=== PATIENT | male | born 2000 | race Hispanic/Latino ===

== ENCOUNTER 2025-03-13 13:59 | Emergency (ER) | payer OTHER ==
[2025-03-13] MEDS ORDERED: IBUPROFEN 400 MG TAB ONE (14:40)
--- NOTE | 2025-03-13 15:45 | RAD REPORT ---
EXAMINATION: Ankle Left 3 View CLINICAL INDICATION: Male, 24 years old. PAIN COMPARISON: No prior exam. FINDINGS: No acute fracture. No malalignment/dislocation. No significant focal degenerative change. Other: Soft tissue swelling along the lateral malleolus. IMPRESSION: No acute osseous abnormality.
--- NOTE | 2025-03-13 15:52 | EDPHYS ---
Physician Documentation [facility] Name: Alfred Caba Age: 24 yrs Sex: Male : 2000 Arrival Date: 03/13/2025 Time: 13:59 Bed 11 Private MD: ED Physician Celestino Thakkar HPI: 03/13 15:40 This 24 yrs old Male presents to ER via Wheelchair with complaints of Ankle kb Injury. 15:40 Patient is a 24-year-old male who presents for left ankle pain that occurred just prior kb to arrival. States he was playing soccer and twisted his ankle in a hole. Denies any other pain or injury.. Historical: - Allergies: 14:18 Chloraprep One Step; iw - Home Meds: 14:15 None [Active]; iw - PMHx: 14:15 None; iw ROS: 15:41 Constitutional: As per HPI kb Exam: 15:41 Constitutional: This is a well developed, well nourished patient who is awake, alert, kb and in no acute distress. Head/Face: Normocephalic, atraumatic. ENT: Moist Mucous membranes Cardiovascular: Regular rate Respiratory: Respirations even and unlabored. No increased work of breathing. Talking in full sentences Skin: Warm, dry with normal turgor. Normal color. Neuro: Awake and alert, GCS 15, oriented to person, place, time, and situation. 15:41 Musculoskeletal/extremity: Extremities: grossly normal except: noted in the left lateral ankle: pain, swelling, tenderness, ROM: limited active range of motion due to pain, Circulation is intact in all extremities. Sensation intact. Vital Signs: 14:21 Resp 16; Temp 98.1; Pulse Ox 98% ; Pain 8/10; iw 14:21 Pain Scale: Adult iw MDM: 14:13 Medical Screening Exam initiated kb 15:51 Differential diagnosis: fracture, sprain, dislocation. Data reviewed: vital signs, kb nurses notes. Counseling: I had a detailed discussion with the patient and/or guardian regarding the historical points, exam findings, and any diagnostic results supporting the discharge/admit diagnosis, radiology results, the need for outpatient follow up, a orthopedic surgeon, to return to the emergency department if symptoms worsen or persist or if there are any questions or concerns that arise at home. 03/13 14:26 Order name: Ankle Left 3 View XRAY; Complete Time: 15:49 kb 03/13 15:49 Order name: Short Leg Splint; Complete Time: 16:19 kb 03/13 15:49 Order name: Crutches; Complete Time: 16:24 kb Administered Medications: 14:48 Drug: Ibuprofen PO 800 mg PO once Route: PO; aa5 16:24 Follow up: Response: No adverse reaction aa5 Disposition Summary: 03/13/25 15:51 Discharge Ordered Notes: Location: Home kb Condition: Stable kb Diagnosis - Sprain of ankle kb Followup: kb - With: Emergency Department - When: As needed - Reason: Worsening of condition Followup: kb - With: Private Physician - When: 2 - 3 days - Reason: Recheck today's complaints, Continuance of care, Re-evaluation by your physician Discharge Instructions: - Discharge Summary Sheet kb - RICE Therapy for Routine Care of Injuries, [id number] kb - Ankle Sprain, [id number]-[id number] kb - Cast or Splint Care, Adult, [id number] kb Forms: - Medication Reconciliation Form kb - Antibiotic Education kb - Prescription Opioid Use kb - Patient Portal Instructions kb - Leadership Thank You Letter kb - Work release form aa5 Prescriptions: - Diclofenac Sodium 75 mg Oral tablet, delayed release (enteric coated) - take 1 tablet ORAL route 2 times per day As needed; 30 tablet; Refills: 0, kb Product Selection Permitted Addendum: 03/15/2025 09:03 Co-signature as Attending Physician, Celestino Thakkar MD I reviewed the patient's care r n provided by the Advanced Practice Provider and agree with the diagnosis and treatment plan. Signatures: Dispatcher [employer] Rose Ochoa, DRAIN TILER-C DRAIN TILER-Ckb Deborah Medrano, Celestino Obrien RN, MD MD rn Calderon, Audri, RN RN aa5 Corrections: (The following items were deleted from the chart) 03/13 14:19 14:15 Allergies: NKDA; [facility]
--- NOTE | 2025-03-13 15:52 | ER ---
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 iw Coronavirus screen: At this time, the client does not indicate any symptoms associated with coronavirus-19. Ebola Screen: No symptoms or risks identified at this time. Initial Sepsis Screen: Does the patient meet any 2 criteria? No. Patient's initial sepsis screen is negative. Does the patient have a suspected source of infection? No. Patient's initial sepsis screen is negative. Risk Assessment: Do you want to hurt yourself or someone else? Patient reports no desire to harm self or others. 14:15 Method Of Arrival: Wheelchair iw 14:15 Acuity: JABARI 4 iw 14:21 Onset of symptoms was March 13, 2025. iw Historical: - Allergies: 14:18 Chloraprep One Step; iw - Home Meds: 14:15 None [Active]; iw - PMHx: 14:15 None; iw Assessment: 16:24 Reassessment: Patient is alert, oriented x 3, equal unlabored respirations, skin aa5 warm/dry/pink. Vital Signs: 14:21 Resp 16; Temp 98.1; Pulse Ox 98% ; Pain 8/10; iw 14:21 Pain Scale: Adult iw ED Course: 14:07 Patient arrived in ED. aa5 14:07 Rose Snyder FNP-C is PHCP. aa5 14:15 Deborah Medrano, CHRISTINE is Primary Nurse. iw 14:15 Triage completed. iw 14:17 Celestino Thakkar MD is Attending Physician. kb 14:19 Arm band placed on. iw 15:41 Ankle Left 3 View XRAY In Process Unspecified. EDMS 16:19 Orthoglass splint: Posterior short lleg splint applied on left leg. ss 16:24 No provider procedures requiring assistance completed. Patient did not have IV access aa5 during this emergency room visit. Administered Medications: 14:48 Drug: Ibuprofen PO 800 mg PO once Route: PO; aa5 16:24 Follow up: Response: No adverse reaction aa5 Outcome: 15:51 Discharge ordered by MD. valverde 16:24 Discharged to home via wheelchair, with crutches, with significant other, aa5 16:24 Condition: stable 16:24 Discharge instructions given to patient, Instructed on discharge instructions, follow up and referral plans. medication usage, Demonstrated understanding of instructions, follow-up care, medications, 16:25 Patient left the ED. aa5 Signatures: Dispatcher [employer] EDTN Rose Snyder, SINGING WAITER OR WAITRESS-C SINGING WAITER OR WAITRESS-CkDeborah Deleon, RN RN Marci West RN RN aa5 Na Teresa RN RN ss Corrections: (The following items were deleted from the chart) 14:19 14:15 Allergies: NKDA; iw iw
[2025-03-15 19:23] VITALS: TEMP 98.1; O2SAT 98
== END 2025-03-13 16:25 | disposition home or self-care (01) ==
LOC: ER 13:59
DX: S93.402A Sprain of unspecified ligament of left ankle, initial encounter (principal)
CPT/HCPCS: 99283